=== PATIENT | male | born 1945 | race Caucasian/White ===

== ENCOUNTER → 2021-06-11 | Outpatient (CLI) | payer MEDICARE ==
--- NOTE | 2021-06-11 16:02 | Diagnostic Imaging Report ---
PROCEDURE: MR imaging cervical spine without contrast. TECHNIQUE: Multiplanar, multisequence MR imaging of the cervical spine was performed without contrast. INDICATION: Neck pain, previous falls. COMPARISON: I have no relevant comparison. FINDINGS: Cervical body heights are maintained. The marrow signal intensity showed no suspicious finding. There is grade 1 degenerative retrolisthesis of C3 on C4. Alignment is otherwise within normal limits. No paraspinal mass, hemorrhage, or fluid collection. Cervical spinal cord itself appeared intrinsically normal. No paraspinal mass, hemorrhage, or fluid collection. A few lower cervical and upper thoracic benign hemangiomas are noted incidentally. The craniocervical relationship, the C1-C2, and the C2-C3 levels and discs were normal. C3-C4: There is disc stature loss, desiccation, and bulge with endplate osteophytes. Findings flatten and efface the ventral cord surface and result in severe central canal stenosis, and there is severe biforaminal narrowing. C4-C5: Osteophyte disc material effaces and indents the ventral thecal sac while less profound than seen at the C3-C4 level. This level is also severely stenosed with mild effacement and flattening of the ventral thecal sac. There is severe left and moderate right foraminal stenosis. C5-C6 level has osteophyte disc material, anterior greater than posterior. The posterior disease does flatten the ventral thecal sac and results in [id number] central canal stenosis, and there is severe left and moderate right foraminal stenosis. C6-C7: Osteophyte disc material posteriorly flattens the ventral thecal sac. Uncovertebral joint spurring and disc material are asymmetric, greater left. There is mild right and femjvimy-nj-pmkuen left foraminal stenosis with vsai-qf-otekuywv canal narrowing. The C7-T1 level showed no substantial stenosis. 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 Dictated by: Dictated on workstation # [id number]
== END ==
LOC: RAD 13:15
PROVIDERS: ATTEND Family Medicine
DX: M43.12 Spondylolisthesis, cervical region (principal); M50.220 Other cervical disc displacement, mid-cervical region, unspecified level; M50.320 Other cervical disc degeneration, mid-cervical region, unspecified level; D18.09 Hemangioma of other sites; M25.78 Osteophyte, vertebrae; M48.02 Spinal stenosis, cervical region
CPT/HCPCS: 72141

== ENCOUNTER → 2023-04-26 | Outpatient (CLI) | payer MEDICARE ==
--- NOTE | 2023-04-26 13:49 | Diagnostic Imaging Report ---
INDICATION: Dyspnea and edema. COMPARISON: None FINDINGS: Single frontal view of the chest demonstrates normal heart size and pulmonary vascularity. The lungs are well aerated and clear. No large pleural effusion or pneumothorax is seen. The visualized osseous structures show no acute abnormalities. IMPRESSION: 1. No acute cardiopulmonary process. Dictated by: Dictated on workstation # [id number]
== END ==
LOC: RAD FS 13:25
PROVIDERS: ATTEND Registered Nurse Emergency
DX: R06.00 Dyspnea, unspecified (principal); R60.0 Localized edema; R53.83 Other fatigue
CPT/HCPCS: 71046

== ENCOUNTER → 2023-05-18 | Outpatient (CLI) | payer MEDICARE | LOC: LAB FS 13:40 | PROVIDERS: ATTEND Registered Nurse Emergency | DX: E83.50 Unspecified disorder of calcium metabolism (principal); R53.83 Other fatigue; R06.00 Dyspnea, unspecified | CPT/HCPCS: 36415; 82330 ==

== ENCOUNTER → 2023-08-01 | Outpatient (CLI) | payer MEDICARE ==
[2023-08-01 14:23] LABS: ALANINE AMINOTRANSFERASE 25 U/L (0-55); ALKALINE PHOSPHATASE 67 U/L (40-136); BILIRUBIN,TOTAL 1.3 MG/DL (0.1-1.0); BUN/CREATININE RATIO 12; CALCIUM 10.8 MG/DL (8.5-10.1); CARBON DIOXIDE 27 MMOL/L (21-32); CHLORIDE 99 MMOL/L (98-107); CREATININE SERUM 1.13 MG/DL (0.60-1.30); GFR ESTIMATED 68; GLUCOSE 125 MG/DL (70-105); POTASSIUM 4.4 MMOL/L (3.6-5.0); SODIUM 136 MMOL/L (135-145)
[2023-08-01 14:24] LABS: ALBUMIN 4.2 GM/DL (3.2-4.5)
[2023-08-01 14:29] LABS: BASOPHILS % (AUTO) 1 % (0-10); EOSINOPHILS # (AUTO) 0.1 10^3/uL (0.0-0.3); EOSINOPHILS % (AUTO) 2 % (0-10); HEMATOCRIT 47 % (40-54); HEMOGLOBIN 15.4 g/dL (13.3-17.7); LYMPHOCYTES # (AUTO) 0.8 10^3/uL (1.0-4.0); LYMPHOCYTES % (AUTO) 12 % (12-44); MEAN CORPUSCULAR HEMOGLOBIN 31 pg (25-34); MEAN CORPUSCULAR HGB CONC 33 g/dL (32-36); MEAN CORPUSCULAR VOLUME 94 fL (80-99); MEAN PLATELET VOLUME 10.2 fL (9.0-12.2); MONOCYTES # (AUTO) 0.3 10^3/uL (0.0-1.0); MONOCYTES % (AUTO) 4 % (0-12); NEUTROPHILS # (AUTO) 5.3 10^3/uL (1.8-7.8); NEUTROPHILS % (AUTO) 81 % (42-75); PLATELET COUNT 240 10^3/uL (130-400); WHITE BLOOD COUNT 6.6 10^3/uL (4.3-11.0)
== END ==
LOC: LAB FS 13:35
PROVIDERS: ATTEND Registered Nurse Emergency
DX: I10 Essential (primary) hypertension (principal); M25.50 Pain in unspecified joint; I48.92 Unspecified atrial flutter
CPT/HCPCS: 36415; 80053; 84443; 84484; 85025